=== PATIENT | male | born 1960 | race Caucasian/White ===

== ENCOUNTER 2019-04-11 09:44 | Outpatient (RCR) | payer MEDICARE, MEDICAID, SELFPAY | END 2019-05-01 00:01 | LOC: SPT 09:44 | PROVIDERS: Family Provider Family Medicine; Visit Provider Family Medicine | DX: M25.551 Pain in right hip (principal); R26.81 Unsteadiness on feet | CPT/HCPCS: 97110; 97161; 97530 ==

== ENCOUNTER 2019-05-02 06:00 | Outpatient (RCR) | payer MEDICARE, MEDICAID, SELFPAY | END 2019-06-01 23:59 | disposition home or self-care (01) | LOC: SPT 06:00 | PROVIDERS: Family Provider Family Medicine; PCP Family Medicine; Referring Provider Family Medicine; Visit Provider Family Medicine | DX: R26.89 Other abnormalities of gait and mobility (principal); M25.551 Pain in right hip; M25.651 Stiffness of right hip, not elsewhere classified | CPT/HCPCS: 97110 ==

== ENCOUNTER 2019-06-02 06:00 | Outpatient (RCR) | payer MEDICARE, MEDICAID, SELFPAY | END 2019-06-30 23:59 | disposition home or self-care (01) | LOC: SPT 06:00 | PROVIDERS: Family Provider Family Medicine; PCP Family Medicine; Referring Provider Family Medicine; Visit Provider Family Medicine | DX: M25.651 Stiffness of right hip, not elsewhere classified (principal); M25.551 Pain in right hip | CPT/HCPCS: 97110 ==

== ENCOUNTER 2020-02-26 08:45 | Outpatient (CLI) | payer MEDICARE, MEDICAID, SELFPAY ==
--- NOTE | 2020-02-26 09:11 | ECG_ITS ---
[facility] Test Date: 2020-02-26 Pat Name: Shine Chung Department: Room: Gender: Male Quality Compliance Manager: : 1960 Requested By: Huan Kaminski Order Number: [id number] Leslee MD: KEYON FARMER Interpretive Statements NAME OF STUDY: LEXISCAN SESTAMIBI STRESS TEST INDICATION: Exertional Chest Pain NOTE: Please note that this is the electrocardiogram portion of the Lexiscan/Sestamibi stress test. The perfusion scan will be documented separately. DATA: Baseline heart rate was 59 beats per minute. Baseline blood pressure was 153/100 millimeters of mercury. Target heart rate was 162. Maximum heart rate achieved was 95. which was 58 % of the predicted target heart rate. Maximum blood pressure was 183/103 millimeters of mercury. The reason for ending the test was completion of the protocol. The patient did not experience any symptoms. ELECTROCARDIOGRAM: BASELINE: Sinus rhythm. Normal axis. Otherwise, no ST-T changes suggestive of ischemia noted. No arrhythmia noted. EXERCISE: After Lexiscan injection, no ST-T changes suggestive of ischemic noted. No arrhythmia noted. 1. EKG not suggestive of ischemia 2. Lexiscan injection unremarkable. 3. Perfusion scan will be documented separately. Electronically Signed On 03-14-2020 15:17:29 ELECTRICIAN UNDERGROUND by KEYON FARMER [email or web address]
--- NOTE | 2020-02-26 09:11 | NMCV_ITS ---
NM jose perf SPECT r/s* [id number] Shine Chung Age: 60 Gender: M : 1960 Exam Date: 02/26/2020 10:02 Ordering Phys: Huan Maravilla MD Technologist: ROSSANA Peace Exam Location: [facility] Indications: Exertional chest pain STRESS TEST Please see separate stress test report in [facility] for full findings IMAGE PROTOCOL Rest/Stress 1 Lexiscan Day Radiopharmaceutical Dose (mCi) Administration Site Administered by Rest: Tc-99m 10.7 IV ROSSANA Peace Sestamibi Stress:Tc-99m 32.8 IV ROSSANA Peace Sestamibi Rest: 26-Feb-2020 60 Discovery 630 Stress: 26-Feb-2020 45 Discovery 630 0.4mg Lexiscan. Images obtained in supine and prone position. SPECT RESULTS Technical Quality: Good Raw Data Analysis: Normal Image Corrections: No attenuation or motion correction applied Summed Stress Score: 0 Summed Rest Score: 0 Summed Difference Score: 0 PERFUSION FINDINGS FUNCTIONAL RESULTS (calculated via Gated SPECT) Stress Image LV EF (%): 59 Stress EDV (mL):105 TID: 1.05 Stress ESV (mL):43 Rest Image LV EF (%): 59 FUNCTIONAL FINDINGS: There is normal left ventricular systolic function. IMPRESSIONS Myocardial perfusion imaging is normal and low probability for obstructive coronary disease. EKG segment will be documented separately. Mikhail Marquez MD (Electronically Signed) Final Date: 26 February 2020 18:09 S
--- NOTE | 2020-02-26 09:20 | PC.NURSE ---
STRESS TEST NOTE THE PATIENT IS BLIND AND IS UNSTEADY 0N HIS FEET TODAY. WHEN QUESTIONING HIM IF HE KNEW THAT DR NIEVES HAD ORDERED A TREADMILL STRESS TEST HE STATES THAT HE KNEW HE DID. BUT, THE PATIENT STATES THAT HE DOES NOT FEEL COMFORTABLE WALKING ON A TREADMILL BEING BLIND. AN ATTEMPT TO CALL DR NIEVES WAS MADE. DR FARMER WAS THEN NOTIFIED AND VERBAL ORDERS WERE GIVEN TO CHANGE THE EXERCISE SESTAMIBI STRESS TEST TO A LEXISCAN SESTAMIBI LONG THE PATIENT WAS AGREEABLE. THIS WAS EXPLAINED IN DETAIL TO THE PATIENT AND HE WISHES TO PROCEED WITH THE LEXISCAN SESTAMIBI STRESS TEST.
[2020-02-26 09:21] VITALS: BMI 31.8
[2020-02-26] MEDS: regadenoson 0.4 Mg/5 ml Syringe IVP (11:32)
[2020-02-26 12:44] VITALS: BP 171/92; PULSE 72
== END 2020-02-26 08:46 | disposition home or self-care (01) ==
LOC: CDL 08:50
PROVIDERS: PCP Family Medicine; Visit Provider Family Medicine
DX: R07.9 Chest pain, unspecified (principal)
CPT/HCPCS: 78452; 93017; A9500; J2785